=== PATIENT | female | born 1965 | race Caucasian/White ===

== ENCOUNTER 2019-05-02 14:48 | Outpatient (CLI) | payer SELFPAY ==
--- NOTE | 2019-05-02 15:00 | US_ITS ---
WS: [id number] PELVIC ULTRASOUND REASON FOR VISIT: PELVIC PAIN TECHNIQUE: Grayscale and Doppler transabdominal and transvaginal pelvic ultrasound. FINDINGS: Endometrium measures 0.20 cm. Uterus measures 5.4 cm x 3.7 cm x 2.8 cm, right ovary measures 2.0 cm x 1.4 cm x 0.8 cm, and left ova ry measures 2.1 cm x 2.0 cm x 0.8 cm. A fibroid is seen along the fundus measures 1. 181.34 x 0.97 cm. US/US pelvic with transvaginal IMPRESSION: Small uterine fibroid.
== END 2019-05-02 14:49 | disposition home or self-care (01) ==
LOC: RAD 14:58
PROVIDERS: Family Provider Family Medicine; Visit Provider Nurse Practitioner Family
DX: D25.9 Leiomyoma of uterus, unspecified (principal)
CPT/HCPCS: 76830; 76856

== ENCOUNTER → 2021-01-27 11:48 | Outpatient (BNVA) | payer OTHER, SELFPAY | PROVIDERS: Family Provider Family Medicine; Visit Provider Nurse Practitioner Family | DX: Z20.822 Contact with and (suspected) exposure to COVID-19 (principal); J06.9 Acute upper respiratory infection, unspecified | CPT/HCPCS: 87635 ==